=== PATIENT | male | born 1930 | race Caucasian/White ===

== ENCOUNTER 2016-12-16 14:32 | Emergency (ER) | payer MEDICARE, BC ==
--- NOTE | 2016-12-16 15:54 | ERNOTE ---
Medical Problem HPI - Narrative Date of Service: 12/16/16 - General Chief Complaint: Nausea/Vomiting Time Seen by Provider: 12/16/16 15:10 Source: patient, family Exam Limitations: no limitations - Immun/Allergies/Home Medications Immunizations: IMMUNIZATION HX Immunizations Up to Date Yes History of Influenza Vaccine Yes Hx Pneumococcal Vaccination Yes Allergies/Adverse Reactions: Allergies No Known Allergies Allergy (Verified 12/16/16 15:22) Home Medications: HOME MEDICATIONS Amox Tr/Potassium Clavulanate [Augmentin 250-62.5/5 Suspension] 5 ml PO BID # 140 ml 12/16/16 [Last Taken Unknown] Calcitriol [Rocaltrol] 0.25 mcg PO DAILY 12/16/16 [Last Taken Unknown] Cholecalciferol [Vitamin D] 5,000 unit PO DAILY 12/16/16 [Last Taken Unknown] Metoprolol Tartrate [Lopressor] 25 mg PO QID 12/16/16 [Last Taken Unknown] Omeprazole [Prilosec] 20 mg PO DAILY 12/16/16 [Last Taken Unknown] Ondansetron [Zofran Odt] 4 mg PO BID #28 tab.rapdis 12/16/16 [Last Taken Unknown ] Simvastatin [Zocor] 80 mg PO DAILY 12/16/16 [Last Taken Unknown] - History of Present History Narrative: This is an 86-year-old man who normally receives his primary care in [facility]. About 10 days ago he became constipated, which persisted until about 3 days ago when he developed diarrhea after using milk of magnesia. He has also been vomiting today, multiple episodes including 2 episodes here in the emergency room, but by the time I saw him he was dull longer nauseated. His ago he saw a creative technologist, Dr. Pollock, but received no particular medication. The family was concerned about a urinary tract infection, but no antibiotic was prescribed because of concern for his "poor kidney function". He was also noted to have some kind of the thyroid problem, type at the present unknown. He has a nephrostomy, because of cancer. He has apparently had bladder cancer prostate cancer gallbladder cancer and throat cancer. He refused radiation treatment for his prostate cancer. He feels very weak, but has not had a fever at home. Been vomiting blood nor has he had bloody bowel movements. History is provided by the patient and by his family. He has a history of elevated potassium in [place], and a heart attack about 3 years ago. Timing: constant, getting worse Severity: mild, moderate Modifying Factors - (Improves): Present: other - nothing Modifying Factors - (Worsens): Present: other - trying to eat or drink Review of Systems - Review of Systems Constitutional: Present: malaise EYE: Present: no symptoms reported ENT: Present: no symptoms reported Respiratory: Present: no symptoms reported Cardiology: Present: no symptoms reported Gastrointestinal/Abdominal: Present: nausea, vomiting, abdominal pain Genitourinary: Present: other Musculoskeletal: Present: back pain - low back pain Neurological: Present: no symptoms reported Endocrine: Present: See HPI Hematologic/Lymphatic: Present: no symptoms reported Psych: Present: no symptoms reported All Other Systems: All systems neg except as marked - Patient's Past Medical History Patient History - Medical: Renal Failure Patient History - Cardiac/Respiratory: Myocardial Infarction Patient History - Cancer: Colon, Prostate, Throat, Other - bladder, gallbladder, throat Patient History - Surgical Procedures: Cardiac stent, Other - Social History Living Situations: home Smoking Status: Former smoker Alcohol Use: none Drug Use: none Physical Exam - Physical Exam General Appearance: Present: wd/wn, alert, no apparent distress, obese Eye Exam: Normal inspection: bilateral, PERRL: bilateral, EOMI: bilateral Ears, Nose, Throat: Present: normal ENT inspection, hearing grossly normal Neck: Present: nontender Respiratory: Present: no respiratory distress, lungs clear Cardiovascular/Chest: Present: regular rate, rhythm, no murmur Gastrointestinal/Abdominal: Present: normal bowel sounds, nontender, nondistended, soft, other - urostomy Back Exam: Present: normal inspection Extremity Exam: Present: non-tender, no edema Neurological Exam: Present: alert, oriented, normal mood/affect Skin Exam: Present: warm/dry, other - sallow ED Progress - Results and Orders Patient's Lab Results:: I have reviewed the patient's lab results. - Vital Signs Patient's Vital Signs:: I have reviewed the patient's vital signs. Vital Signs: Vital Signs 12/16/16 12/16/16 15:09 15:28 Temperature 38.0 C H Pulse Rate 87 91 Respiratory 16 17 Rate Blood Pressure 194/98 178/88 O2 Sat by Pulse 89 L 92 Oximetry - EKG EKG: NSR EKG read: Interp. by me - short CA interval, old inferior DE - X-Ray X-Ray #1 X-Ray: chest Interpretation: Reviewed by me - left hemidiaphragm elevation X-Ray #2 X-Ray: abdomen Interpretation: Reviewed by me - non specific - Progress/Reassessment Chief Complaint: Nausea/Vomiting Progress:: Improved Departure - Departure Clinical Impression: Stage 4 chronic kidney disease UTI (urinary tract infection) Qualifiers: Urinary tract infection type: site unspecified Hematuria presence: without hematuria Qualified Code(s): N39.0 - Urinary tract infection, site not specified Disposition: Home self-care Condition: Good Instructions: Pyelonephritis, Adult, [id number], Clear Liquid Diet, Easy-to- Read Additional Instructions: Followup with your usual doctor in three days. Drink only clear liquids for the next three days. Referrals: [Primary Care Provider] - Prescriptions: Amox Tr/Potassium Clavulanate [Augmentin 250-62.5/5 Suspension] 5 ml PO BID # 140 ml Ondansetron [Zofran Odt] 4 mg PO BID #28 tab.marly
[2016-12-16 16:05] LABS: Hematocrit 40.6 % (42.0-52.0); Hemoglobin 12.9 gm/dL (13.5-18.0); Mean Cell Volume 96.9 fl (78-100); Mean Corpuscular Hemoglobin 30.8 pg (27-31); Mean Corpuscular Hgb Conc 31.8 g/dl (32-36); Mean Platelet Volume 10.5 fl (6.0-9.5); Neutrophil # 12.2 K/mm3 (1.3-6.0); Neutrophil % 92.2 % (42-75.0); Platelet Count 216 K/mm3 (150-450); Red Blood Count 4.19 M/mm3 (4.7-6.0); Red Cell Distribution Width 14.5 % (11.5-14.0); White Blood Count 13.2 K/mm3 (4.0-10.5)
[2016-12-16 16:21] LABS: BUN/Creatinine Ratio 14.5 (9.0-21.6)
[2016-12-16 16:22] LABS: Albumin * 3.3 gm/dl (3.4-5.0); Anion Gap 12.4 mmol/L (6.8-13.8); Bilirubin, Total 0.4 mg/dL (0.0-1.1); Ca. Corrected For Albumin 9.4 mg/dL (8.4-10.2); Calcium * 9.2 mg/dL (7.9-10.9); Carbon Dioxide 26.2 mmol/L (24-32.6); Potassium 4.6 mmol/L (3.4-4.6); T4 Free * 1.03 ng/dL (0.76-1.46); TSH * 1.086 uIU/mL (0.358-3.74); Total Protein 8.6 gm/dL (6.2-8.2)
[2016-12-16] MEDS ORDERED: MEROPENEM 1 GM in NORMAL SALINE 100 ML IV ONE (16:30)
[2016-12-16 16:45] LABS: Urine Bilirubin Negative (NEGATIVE); Urine Blood 250 /ul (NEGATIVE); Urine Color Yellow; Urine Ketone Negative (NEGATIVE); Urine Nitrite Positive (NEGATIVE); Urine Protein 100 mg/dL (NEGATIVE); Urine Urobilinogen Normal (NORMAL)
[2016-12-16 16:48] LABS: Urine Bacteria 4+; Urine RBC >50 /hpf (0-5); Urine WBC >50 /hpf (0-5)
[2016-12-16 16:49] LABS: Urine Appearance Cloudy
[2016-12-16 16:59] VITALS: BP 137/104
== END 2016-12-16 17:20 | disposition home or self-care (01) ==
LOC: ER 14:32
DX: N18.4 Chronic kidney disease, stage 4 (severe) (principal); N39.0 Urinary tract infection, site not specified; Z95.5 Presence of coronary angioplasty implant and graft; Z85.038 Personal history of other malignant neoplasm of large intestine; Z85.46 Personal history of malignant neoplasm of prostate; Z85.01 Personal history of malignant neoplasm of esophagus; Z85.51 Personal history of malignant neoplasm of bladder; Z87.891 Personal history of nicotine dependence; R53.81 Other malaise